=== PATIENT | female | born 1985 | race Caucasian/White ===

== ENCOUNTER 2020-03-16 09:37 | Inpatient (IN) ==
[2020-03-16] MEDS ORDERED: RINGER'S SOLUTION,LACTATED 1,000 ML IV ONE (11:05)
[2020-03-16] MEDS ORDERED: ONDANSETRON 4 MG TAB.RAPDIS PO PRN (11:05)
[2020-03-16] MEDS ORDERED: OXYTOCIN/0.9 % SODIUM CHLORIDE 30 UNITS/500 ML BAG IV ONE ×2 (11:05→18:22)
--- NOTE | 2020-03-16 12:45 | HP ---
Chief Complaint - Chief Complaint Date of Service: 03/16/20 Time of Service: 12:26 Chief Complaint: LOF History of Present Illness: 34 yo at 38w1d presents to L&D complaining of LOF since around 729 with frequent contracions of increasing intensity. This complicated by anemai, obesity, CHTN, smoker, and SROM. Rh positive Rubella immune GBS negative Medical History (Last Reviewed 03/16/20 @ 12:31 by Kirk Avilez DO) Body piercing Onset Date: Unknown Tattoos Onset Date: Unknown Abnormal Pap smear of cervix Onset Date: Unknown Abscess Onset Date: Unknown Chlamydia vaginitis/cervicitis Onset Date: ~2006 Spontaneous Onset Date: ~2007 vanishing twin @ 12 wks Twin Onset Date: ~2007 Lost one twin at about 3 months Surgical History: Surgical History (Last Reviewed 03/16/20 @ 12:31 by Kirk Avilez DO) History of colposcopy Onset Date: Unknown Uncertain of results Hx of cholecystectomy Onset Date: ~01/17/09 dr clary feng Family History: Family History (Last Reviewed 03/16/20 @ 12:31 by Kirk Avilez DO) Mother Hypertension Hyperlipemia Father Hernia Social History: (Last Reviewed 03/16/20 @ 12:31 by Kirk Avilez DO) Social History: adopted: No care home: No Marital status: Single household members: children, significant other, other number of children: 1 current occupational status: unemployed Highest education level completed: some college, no degree Sexually Active: Yes Service: No Tobacco: Smoking Status: Current every day smoker tobacco type: cigarettes Smoking cigarettes per day: 15 Alcohol: alcohol intake: current alcohol intake frequency: holiday/special occasion details: No alcohol since + UPT Substance Use: substance use type: does not use Dietary Habits: caffeine: Yes caffeine comment: 2-3 Type: coffee Exercise: Physical activity type: walking frequency: 1-2 times per week Luzma/Adventist: agree to transfusion: Yes Review Of Systems (GEN) - Review of Systems Generalized/Overall Review: Present: No Symptoms Reported EENTM: Present: No Symptoms Reported Respiratory: Present: No Symptoms Reported Cardiac: Present: No Symptoms Reported Abdominal: Present: Other - contractions Genitourinary: Present: Other - LOF- clear since 729. Musculoskeletal: Present: No Symptoms Reported Neurological: Present: No Symptoms Reported Skin: Present: No Symptoms Reported Immunizations: IMMUNIZATION HX Immunizations Up to Date Yes Allergies/Adverse Reactions: Allergies Allergy/AdvReac Type Severity Reaction Status Date / Time Penicillins AdvReac Mild vomiting, Verified 03/12/20 14:42 intolerance-different PCN's used with same result Home Medications: HOME MEDICATIONS Vits96/Iron Fum/Folic [ S] 1 tab PO DAILY 03/16/20 [Last Taken Unknown] Exam - Exam Vital Signs: T 36.8C, P 93, R 18, BP 130/80, O2 97%. Constitutional: Present: Alert, Oriented x3, Cooperative, Mild distress - c ontraction pain ENT Exam: Present: hearing grossly normal Neck: Present: trachea midline Breasts: Present: Exam deferred Respiratory: Present: lungs clear, no respiratory distress Cardiovascular/Chest: Present: normal peripheral pulses, regular rate, rhythm Abdomen: Present: soft, nontender, no rebound tenderness, other - gravid /Rectal: Present: Other - Cervix FT/th/-3 upon presentation, now 3/75/-3. Clear LOF. Extremity: Present: no calf tenderness, lower extremity edema - 1+, DTR 2/4, no clonus Skin Exam: Present: normal color, warm/dry Neurologic: Present: alert, normal mood/affect, oriented x 3 Appearance: Present: appropriate appearance, appropriate insight Eye contact: Present: cooperative, good eye contact Thoughts: Present: normal thought pattern, normal mood /affect Assessment/Plan - Assessment/Plan (1) Labor established Assessment: Admit for routine management of labor. Epidural and pitocin PRN. Problem: Acute (2) SROM (spontaneous rupture of membranes) Assessment: Monitor for s/s of infection. Minimize vaginal exams. Problem: Acute (3) Smoker Problem: Chronic (4) Anemia Problem: Chronic Qualifiers: Anemia type: iron deficiency Iron deficiency anemia type: inadequate dietary iron intake Qualified Code(s): D50.8 - Other iron deficiency anemias (5) BMI 39.0-39.9,adult Problem: Chronic
[2020-03-16] MEDS ORDERED: NALOXONE HCL 1 MG/1 ML SYRG IV PRN (12:46)
[2020-03-16] MEDS ORDERED: ONDANSETRON HCL/PF 2 MG/ML VIAL IV PRN (12:46)
[2020-03-16] MEDS ORDERED: BUPIVACAINE HCL/0.9 % NACL/PF 250 ML EP PRN (12:46)
--- NOTE | 2020-03-16 12:50 | PN ---
Progess Note - Interim Date: 03/16/20 Time: 12:30 Narrative: 03/16/20 12:47 Patient nauseous and requesting epidural for severity of contraction pain. Patient denies headache, visual changes, or epigastric pain. Blood pressures have been creeping up over the past couple hours with a few in the severe range (most likely due to increasing pain but with history of high pressures before admission will reassess for preeclampsia). FHT: 125 baseline, reassuring contractions q 2-3 min Cervix: 3/75/-3. Impression: Intrauterine at 38 1/7 weeks labor with spontaneous rupture of membranes progressing. Patient desires epidural. Elevated pressures probably due to pain but will rule out superimposed preeclampsia. Plan: Fluid bolus given epidural requested. Awaiting labs.
--- NOTE | 2020-03-16 12:54 | ANES ---
Anesthesia Pre Procedure Eval Vitals/Labs: Last Vital Signs Temp 36.8 C 03/16/20 10:00 Pulse 93 03/16/20 10:00 Resp 18 03/16/20 10:00 BP 138/80 03/16/20 10:00 Pulse Ox 97 03/16/20 10:00 HOME MEDICATIONS Vits96/Iron Fum/Folic [ S] 1 tab PO DAILY 03/16/20 [Last Taken Unknown] Allergies/Adverse Reactions: Allergies Allergy/AdvReac Type Severity Reaction Status Date / Time Penicillins AdvReac Mild vomiting, Verified 03/12/20 14:42 intolerance-different PCN's used with same result - Planned Procedure Planned Procedure: Labor epidural Medication List Reviewed:: Yes Allergies Verified: Yes Medical History (Last Reviewed 03/16/20 @ 12:53 by Antonio Archuleta CRNA) Body piercing Onset Date: Unknown Tattoos Onset Date: Unknown Abnormal Pap smear of cervix Onset Date: Unknown Abscess Onset Date: Unknown Chlamydia vaginitis/cervicitis Onset Date: ~2006 Spontaneous Onset Date: ~2007 vanishing twin @ 12 wks Twin Onset Date: ~2007 Lost one twin at about 3 months Surgical History (Last Reviewed 03/16/20 @ 12:53 by Antonio Archuleta CRNA) History of colposcopy Onset Date: Unknown Uncertain of results Hx of cholecystectomy Onset Date: ~01/17/09 dr brand; ping Family History (Last Reviewed 03/16/20 @ 12:53 by Antonio Archuleta CRNA) Mother Hypertension Hyperlipemia Father Hernia - Family Anesthesia History Family History:: no untoward family reactions to anesthesia, no familial bleeding tendencies, no family history of clotting disorders, no family history of premature - Airway/Neck/Teeth Within Normal Limits:: Yes Teeth Condition: intact Neck Exam: full range of motion Mallampatti Score: 2 Thyromental (T-M) distance: > 6 cm Mandibulo Hyoid distance: > 3 cm - Respiratory Respiratory Physical: lungs clear Sleep Apnea currently treated: No Sleep Apnea by current assessment: No - Cardiovascular Tolerate Activity: Fair Heart Sounds: S1 & S2, Regular - Gastrointestinal NPO since: today - Anesthesia Assessment and Plan ASA Class: PS, II, E Anesthesia Type Plan: Epidural - CSE for labor epidural
[2020-03-16] MEDS ORDERED: fentaNYL CITRATE/PF 50 MCG/ML AMPUL IT SCH (13:00)
--- NOTE | 2020-03-16 13:19 | ANES ---
Anesthesia Procedure Note Procedure Note: ANESTHESIA PROCEDURE NOTE Date of Procedure: 03/16/2020 Time of procedure: 12:55 PM. Performed by: ELBA Bills CRNA, MSN Dag Sprayer: Idalmis Collins RN. Preprocedure diagnosis: Active labor, labor pain. Post procedure diagnosis: Same. Procedure:Epidural for labor analgesia L3-4. Indications: Labor pain. Findings: See below. Details of the procedure: The patient was placed on the side of the bed in sitting positionand prepped with DuraPrep then draped in a sterile fashion. Lidocaine 1% was infiltrated to the skin and subcutaneous tissues at the level of the L3-4 interspace. An 18-gauge Touhy needle was used to approach the epidural space with loss of resistance technique. Once loss of resistance was achieved a 27-gauge spinal needle was passed through the epidural needle and CSF was contacted. After CSF returned, 20 mcg of fentanyl was injected in the spinal needle was removed the epidural catheter was then threaded approximately 4 cm in the epidural needle was removed. The catheter was taped in place and after careful aspiration 3 mL of 1.5% lidocaine with 1-200,000 epinephrine was injected without change in maternal heart rate or sensorium. . EBL: Minimal. Fluids: N/A. Specimen: N/A. Post procedure condition: The patient tolerated the procedure well with good relief. No complications were noted. Thank you for this consultation. Antonio Archuleta CRNA, ELBA, MSN
--- NOTE | 2020-03-16 13:19 | ANES ---
Post Anesthesia Discharge - Transfer of Care Transfer of Care handoff given to nurse: Yes - Discharge from PACU Discharge from PACU when meets criteria: Yes - Comfortable post CSE.
[2020-03-16 13:38] LABS: Hematocrit 39.9 % (37.0-47.0); Hemoglobin 13.3 gm/dL (12.5-16.0); Mean Cell Volume 94.5 fl (78-100); Mean Corpuscular Hemoglobin 31.5 pg (27-31); Mean Corpuscular Hgb Conc 33.3 g/dl (32-36); Mean Platelet Volume 10.7 fl (8-12.5); Neutrophil # 13.2 K/mm3 (1.3-6.0); Neutrophil % 81.6 % (42-75.0); Platelet Count 293 K/mm3 (150-450); Red Blood Count 4.22 M/mm3 (4.2-5.4); Red Cell Distribution Width 14.1 % (11.5-14.0); White Blood Count 16.2 K/mm3 (4.0-10.5)
--- NOTE | 2020-03-16 13:43 | ANES ---
Post Anesthesia Assessment - Vital Signs Vitals: Last Vital Signs Temp 36.6 C 03/16/20 13:20 Pulse 77 03/16/20 13:20 Resp 18 03/16/20 13:20 BP 134/79 03/16/20 13:20 Pulse Ox 94 03/16/20 13:20 Airway Patency: Normal - Mental Status Level Of Consciousness: Awake, Alert, Appropriate - Pain Level Pain Score: 0 - N/V Assessment Nausea/Vomiting Presence: None Dehydration:: No
[2020-03-16 13:54] LABS: Random Urine Total Protein 6.2 mg/dL (0-12)
[2020-03-16 13:55] LABS: Albumin * 2.5 gm/dl (3.4-5.0); Anion Gap 16.5 mmol/L (6.8-13.8); Bilirubin, Total 0.3 mg/dL (0.0-1.1); Ca. Corrected For Albumin 10.6 mg/dL (8.4-10.2); Calcium * 9.7 mg/dL (7.9-10.9); Carbon Dioxide 20.3 mmol/L (24-32.6); Potassium 3.8 mmol/L (3.4-4.6); Total Protein 7.6 gm/dL (6.2-8.2)
[2020-03-16] MEDS ORDERED: LIDOCAINE HCL/EPINEPHRINE 30 ML VIAL IJ ONE (15:44)
[2020-03-16] MEDS ORDERED: LIDOCAINE HCL/EPINEPHRINE 20 ML VIAL IJ ONE (15:44)
[2020-03-16] MEDS ORDERED: LIDOCAINE HCL/EPINEPHRINE 20 ML VIAL ONE (15:49)
[2020-03-16] MEDS ORDERED: GLYCERIN/WITCH HAZEL LEAF 40 APPL BOX TP PRN (18:22)
[2020-03-16] MEDS ORDERED: IBUPROFEN 800 MG TABLET PO PRN (18:22)
[2020-03-16] MEDS ORDERED: BISACODYL 10 MG SUPP.RECT RC PRN (18:22)
[2020-03-16] MEDS ORDERED: HYDROCORTISONE 30 APPL TUBE TP PRN (18:22)
[2020-03-16] MEDS ORDERED: BENZOCAINE/MENTHOL 81 SPRAY CAN TP PRN (18:22)
[2020-03-16] MEDS ORDERED: SENNOSIDES 8.6 MG TABLET PO PRN (18:22)
--- NOTE | 2020-03-16 18:25 | OR ---
Operative Report - Dictated Report Narrative: Spontaneous vaginal delivery of vigorously crying viable male at 1810 with Apgars 9 and 9, weighing 2824 g in NELSON position rotated to LULU position with right hand at face due to pause in contractions. Arm cord/body cord x1. Cord clamping delayed approximately 1 minute Placenta delivered complete, intact, with three vessel cord Estimated blood loss: 100 mL Anesthesia: Epidural Lacerations: None History for MU History for Definition: * The number of deliveries resulting in a live the patient experienced prior to current hospitalization * The previous delivery of live twins or any live multiple gestation is considered one live event. *If primagravida or nulliparous is documented select zero for the number of previous live births. Live Events: Live Events: 1
[2020-03-16] MEDS: IBUPROFEN 800 MG TABLET PO PRN (18:47)
[2020-03-16] MEDS: DOCUSATE SODIUM 100 MG CAPSULE PO SCH (21:11)
[2020-03-17] MEDS: oxyCODONE HCL/ACETAMINOPHEN 1 TAB TABLET PO PRN ×3 (05:55→20:50)
[2020-03-17] MEDS: PRENATAL VITS96/IRON FUM/FOLIC 1 TAB TABLET PO SCH (08:47)
[2020-03-17] MEDS: DOCUSATE SODIUM 100 MG CAPSULE PO SCH (08:47)
--- NOTE | 2020-03-17 09:15 | PN ---
Subjective - Date and Time Seen Date: 03/17/20 Time: 09:10 Objective - Vitals Vitals: Last Vital Signs Temp 36.5 C 03/17/20 08:08 Pulse 71 03/17/20 08:08 Resp 18 03/17/20 08:08 BP 141/84 H 03/17/20 08:57 Pulse Ox 96 03/17/20 02:28 Patient denies headache, visual changes, or epigastric pain. Patient is getting antsy about not being able to smoke. Lochia wnl abdomen - soft, nontender Uterus -firm, at umbilicus - 1 No calf tenderness. DTR-06/22, no clonus Impression: day #1 - s/p spontaneous vaginal delivery. Chronic hypertension with labile blood pressures, occasional severe range blood pressure, preeclamptic labs within normal limits. Plan: Continue routine care. Monitor for signs/symptoms of severe features throughout her hospital stay. - Abnormal Lab Findings Abnormal Lab Findings: Abnormal Lab Results 03/16/20 03/16/20 03/16/20 Range/Units 13:32 13:32 13:32 WBC 16.2 H (4.0-10.5) K/mm3 MCH 31.5 H (27-31) pg RDW 14.1 H (11.5-14.0) % Immature Gran % (Auto) 0.60 H (0.001-0.429) % Immature Gran # (Auto) 0.09 H (0.000-0.0310) K/mm3 Neutrophils % 81.6 H (42-75.0) % Lymphocytes % 12.9 L (20-51) % Neutrophils # 13.2 H (1.3-6.0) K/mm3 Carbon Dioxide 20.3 L (24-32.6) mmol/L Anion Gap 16.5 H (6.8-13.8) mmol/L Calcium Adj for Albumin 10.6 H (8.4-10.2) mg/dL ALT 11 L (19-67) U/L Albumin 2.5 L (3.4-5.0) gm/dl Ur Random Creatinine 24.9 L (60-200) mg/dL U [place] Prot/Creat Ratio 249 H (0-199) mg/gm Cauti Physician Documentation - Urinary Catheter Management Urethral (Lopez) Urethral Indwelling: No Date of Insertion: 03/16/20 Time of Insertion: 13:00 Date of Removal: 03/16/20 Time of Removal: 18:00 Assessment/Plan - Problems/Diagnosis (1) Labor established Problem: Resolved (2) SROM (spontaneous rupture of membranes) Problem: Resolved (3) Smoker Problem: Chronic (4) Anemia Problem: Chronic Qualifiers: Anemia type: iron deficiency Iron deficiency anemia type: inadequate dietary iron intake Qualified Code(s): D50.8 - Other iron deficiency anemias (5) BMI 39.0-39.9,adult Problem: Chronic
[2020-03-17] MEDS: IBUPROFEN 800 MG TABLET PO PRN (09:26)
--- NOTE | 2020-03-18 00:37 | DS ---
OB Discharge Summary (1) Labor established Status: Resolved (2) SROM (spontaneous rupture of membranes) Status: Resolved (3) Smoker Status: Chronic (4) Anemia Status: Chronic Qualifiers: Anemia type: iron deficiency Iron deficiency anemia type: inadequate dietary iron intake Qualified Code(s): D50.8 - Other iron deficiency anemias (5) BMI 39.0-39.9,adult Status: Chronic Delivery Date: 03/16/20 Delivery Time: 18:10 :: 3 Para:: 1 Gestational weeks:: 38 Gestational days:: 1 Intrapartum Procedures: Spontaneous Vaginal Delivery, Delivered /OP Complications: Other - Chronic HTN Discharge Diagnosis: Term -Delivered - Discharge Information Date of Discharge: 03/18/20 Hospital Course: Patient was admitted day of delivery with spontaneous rupture of membranes and labor which was augmented with Pitocin. Within an hour or 2 before delivery patient began having severe variables and late decelerations but was able to push the baby out quickly. Baby was born with a arm and body cord, requiring no resuscitation. Patient had a few elevated blood pressures during labor and a few severe range blood pressures after delivery. CBC, CMP, and protein creatinine ratio were within normal limits. Discharge Location: Home Disposition: Home self-care Condition: Good Activity on Discharge:: Activity as tolerated, Pelvic Rest Discharge Diet: General/regular food Complete Home Medications List: Complete Home Medication List: Vits96/Iron Fum/Folic [ S] 1 tab PO DAILY 03/16/20 - Plan Discharge to:: Home Follow up in office in:: 3-4 weeks - Information Weight (Grams): 2,824 Infant Sex: Male Score 1 min: 9 Score 5 min: 9 Circumcision: Yes Infant Complications: Multiple Late Decels, Multiple Variable Decels, Other - undescended testicles
[2020-03-18] MEDS: DOCUSATE SODIUM 100 MG CAPSULE PO SCH ×2 (01:14→07:31)
[2020-03-18] MEDS: oxyCODONE HCL/ACETAMINOPHEN 1 TAB TABLET PO PRN ×2 (01:15→07:30)
[2020-03-18] MEDS: IBUPROFEN 800 MG TABLET PO PRN (03:52)
[2020-03-18] MEDS: PRENATAL VITS96/IRON FUM/FOLIC 1 TAB TABLET PO SCH (07:31)
--- NOTE | 2020-03-18 16:47 | PN ---
Subjective - Date and Time Seen Date: 03/18/20 Time: 11:10 Objective - Vitals Vitals: Last Vital Signs Temp 37.3 C 03/18/20 06:23 Pulse 85 03/18/20 06:23 Resp 18 03/18/20 06:23 BP 144/86 H 03/18/20 06:23 Pulse Ox 98 03/18/20 06:23 Patient denies complaints. Breast-feeding. Lochia wnl abdomen - soft, nontender Uterus -firm, at umbilicus - 2 No calf tenderness. DTR-2/4, no clonus. Impression: day #2 - s/p spontaneous vaginal delivery. Chronic hypertension with labile blood pressures but no severe symptoms. Plan: Routine discharge instructions. Preeclampsia precautions. Repeat blood pressure in 1 week. Cauti Physician Documentation - Urinary Catheter Management Urethral (Lopez) Urethral Indwelling: No Date of Insertion: 03/16/20 Time of Insertion: 13:00 Date of Removal: 03/16/20 Time of Removal: 18:00 Assessment/Plan - Problems/Diagnosis (1) Labor established Problem: Resolved (2) SROM (spontaneous rupture of membranes) Problem: Resolved (3) Smoker Problem: Chronic (4) Anemia Problem: Chronic Qualifiers: Anemia type: iron deficiency Iron deficiency anemia type: inadequate dietary iron intake Qualified Code(s): D50.8 - Other iron deficiency anemias (5) BMI 39.0-39.9,adult Problem: Chronic
[2020-03-18 17:21] VITALS: BP 142/73
== END 2020-03-18 12:35 | disposition home or self-care (01) | DRG 807 ==
LOC: OBCLINIC 09:37 → OB 10:58
PROVIDERS: ADMIT Obstetrics & Gynecology; ATTEND Obstetrics & Gynecology